=== PATIENT | female | born 1970 | race Caucasian/White ===

== ENCOUNTER 2020-03-18 18:56 | Emergency (ER) | payer OTHER, SELFPAY ==
--- NOTE | ~2020-03-18 | XR_ITS ---
XR shoulder RT min 2V 03/18/2020 19:54 INDICATION: Right shoulder pain PROCEDURE: 4 views right shoulder COMPARISON: No prior studies for comparison. FINDINGS: Fracture, dislocation or subluxation is not identified. The soft tissues appear within norm al limits. No foreign bodies are identified. IMPRESSION: 1: NO ACUTE BONE OR JOINT ABNORMALITY IDENTIFIED. Reviewed, dictated and finalized at location A. HAND[employer] ASSIST[employer]
[2020-03-18 18:57] VITALS: BP 128/87; PULSE 99; RESP 20; TEMP 36.1; O2SAT 99
[2020-03-18] MEDS: ACETAMINOPHEN 500 MG TABLET 1000 MG PO (19:34)
[2020-03-18] MEDS: diazePAM INJ (*CRX) 10 MG/2 ML SYRINGE 5 MG IM (19:34)
--- NOTE | 2020-03-18 19:35 | ED.UPPEXIN ---
HPI - Extremity Injury (Upper) General Chief Complaint: Extremity Injury, Upper Stated Complaint: right shoulder pain Time Seen by Provider: 03/18/20 19:06 Source: patient Mode of arrival: ambulatory Limitations: no limitations History of Present Illness HPI narrative: This is a 49 year old female that presents to the ER for right shoulder pain that started today. No known injury or trauma. Reports the pain is in the front of her shoulder. She has taken ibuprofen with little relief. Reports decreased ROM due to pain. Denies weakness or numbness. Related Data Allergies Allergy/AdvReac Type Severity Reaction Status Date / Time AMOXICILLIN TRIHYDRATE Allergy Intermediate VOMITING Uncoded 03/18/20 19:00 POTASSIUM CLAVULANATE Allergy Intermediate VOMITING Uncoded 03/18/20 19:00 Review of Systems Review of Systems: Narrative: CONSTITUTIONAL: Denies fever MUSCULOSKELETAL: Reports joint pain, and myalgia. NEUROLOGIC: Denies numbness, or weakness. All systems reviewed & are unremarkable except as noted in HPI and below PMFSH Past Medical History Medical History (Updated 03/18/20 @ 21:14 by Mee Willoughby PA-C) History of depression History of hypertension Exam Narrative: Exam Narrative: GENERAL: Well-appearing, well-nourished, and in no acute distress. HEAD: Normocephalic, atraumatic. EYES: EOMI. CHEST: Clear to auscultation. No respiratory distress. No wheezes rales or rhonchi HEART: Regular rate and rhythm. No murmur heard. Normal peripheral pulses. ABDOMEN: Soft, nontender, nondistended, normal active bowel sounds. EXTREMITIES: Decreased active range of motion of the right shoulder due to pain. No edema, erythema or obvious deformity. Normal radial pulses. Normal sensation SKIN: Warm, dry, no rash. NEURO: No focal deficits. Alert and oriented x3. PSYCH: Normal mood and affect Course Vital Signs Vital signs: Vital Signs Temperature 97.0 F L 03/18/20 18:57 Pulse Rate 99 03/18/20 18:57 Respiratory Rate 20 03/18/20 18:57 Blood Pressure 128/87 03/18/20 18:57 Pulse Oximetry 99 03/18/20 18:57 Temperature 97.0 F L 03/18/20 18:57 Pulse Rate 99 03/18/20 18:57 Respiratory Rate 20 03/18/20 18:57 Blood Pressure 128/87 03/18/20 18:57 Pulse Oximetry 99 03/18/20 18:57 MDM - Extremity Injury (Upper) MDM Narrative Medical decision making narrative: Patient presents to the emergency department for right shoulder pain that started today. No known injury or trauma. Right shoulder x-rays without acute findings. Patient placed in a sling for comfort and instructed to rest, ice and take [id number] pain medication as needed. Will be prescribed muscle relaxer as needed for pain. Will be given orthopedics for follow-up. She was given warnings to return to the ER Imaging Data Radiologist's impression: ITS Impressions Shoulder X-Ray 03/18/20 19:58 IMPRESSION: 1: NO ACUTE BONE OR JOINT ABNORMALITY IDENTIFIED. Critical Care Time Critical Care Time Critical Care Time: No Discharge Plan Discharge Clinical Impression: Acute pain of right shoulder Patient Disposition: Home, Self-Care Condition: Stable Instructions: Shoulder Pain (ED) Additional Instructions: Return to the ER if you experience fever, redness and swelling of your arm, weakness, numbness, or any other symptoms that are concerning to you Rest. Ice to the area. Tylenol or ibuprofen as needed for pain. Muscle relaxer (Diazepam) as needed for pain. These can make you sleepy, do not drive if you are going to take them. You may wear the sling for comfort, do make sure that you come out of the sling and do some range of motion exercises so you do not get stiff Follow-up with your primary care doctor and/or orthopedic Prescriptions: New diazepam 5 mg tablet 5 mg PO BID PRN (Reason: muscle spasm) Qty: 10 RF: 0 Follow-up/Referrals: Trista,Lucius Castorena MD [Primary Care Provider] - [place]
--- NOTE | 2020-03-18 19:45 | PC.NURSE ---
patient to xray via wheelchair.
--- NOTE | 2020-03-18 20:17 | PC.NURSE ---
xray resulted. no deformity or fracture. waiting for further orders from provider vs. disposition.
[2020-03-18 21:35] VITALS: BP 128/70; PULSE 78; RESP 16; O2SAT 100
== END 2020-03-18 21:40 | disposition home or self-care (01) ==
PROVIDERS: Emergency Provider Emergency Medicine; PCP Family Medicine
DX: M25.511 Pain in right shoulder (principal); I10 Essential (primary) hypertension
CPT/HCPCS: 73030; 96372; 99283; A4565; A9270; J3360

== ENCOUNTER 2020-07-12 07:55 | Outpatient (CLI) | payer OTHER, SELFPAY | END 2020-07-12 07:56 | disposition home or self-care (01) | LOC: ANHAUDIO 07:57 | PROVIDERS: PCP Family Medicine; Visit Provider Nurse Practitioner Family | DX: R42 Dizziness and giddiness (principal) | CPT/HCPCS: 92537; 92540; 92546; 92557; 92567 ==

== ENCOUNTER 2023-10-03 13:36 | Outpatient (CLI) | payer BC, SELFPAY ==
--- NOTE | ~2023-10-03 | MM_ITS ---
EXAMINATION: MM screening shabnam BI w fabrice HISTORY: Screening TECHNIQUE: Craniocaudal and mediolateral oblique 3-D tomosynthesis images were obtained and synthetic 2-D images were generated. CAD analysis was submitted and interpreted. COMPARISON: 07/16/2016 BREAST PARENCHYMAL COMPOSITION: Not dense: There are scattered areas of fibroglandular density. FINDINGS: There is no evidence of suspicious mass, calcification, or architectural distortion to sugg est malignancy in either breast. There has been no suspicious interval change. IMPRESSION: 1. No mammographic evidence of malignancy. 2. Recommend routine screening mammography in one year. BI-RADS Category 1: Negative Reviewed, dictated and finalized at location B.
== END 2023-10-03 13:37 | disposition home or self-care (01) ==
LOC: CHSIMG 13:38
PROVIDERS: PCP Physician Assistant; Visit Provider Physician Assistant
DX: Z12.31 Encounter for screening mammogram for malignant neoplasm of breast (principal)
CPT/HCPCS: 77063; 77067